=== PATIENT | male | born 1955 | race Caucasian/White ===

== ENCOUNTER 2021-11-20 20:41 | Emergency (ER) | payer OTHER | END 2021-11-20 22:40 | disposition home or self-care (01) | LOC: ER1 20:41 | DX: S51.812A Laceration without foreign body of left forearm, initial encounter (principal); Z23 Encounter for immunization; W45.8XXA Other foreign body or object entering through skin, initial encounter | CPT/HCPCS: 73100; 90715; 99283 ==